=== PATIENT | female | born 1970 ===

== ENCOUNTER 2018-02-05 10:05 | Emergency (ER) | payer OTHER ==
[~2018-02-05] VITALS: Ht 162.6 cm; Wt 98.0 kg
== END 2018-02-05 14:34 | disposition home or self-care (01) ==
LOC: ER 10:05
DX: N39.0 Urinary tract infection, site not specified (principal)

== ENCOUNTER 2018-09-13 09:40 | Emergency (ER) | payer OTHER ==
[~2018-09-13] VITALS: Ht 162.6 cm; Wt 90.7 kg
[2018-09-13] MEDS ORDERED: RELAFEN (09:55)
[2018-09-13] MEDS ORDERED: NORFLEX (09:55)
== END 2018-09-13 11:06 | disposition home or self-care (01) ==
LOC: ER 09:40
DX: M54.5 Low back pain (principal)

== ENCOUNTER → 2018-12-02 | Emergency (ER) | payer OTHER ==
[~2018-12-02] VITALS: Ht 154.9 cm; Wt 102.1 kg
[~2018-12-02] MED LIST: NORFLEX; RELAFEN
== END | disposition home or self-care (01) ==
LOC: ER 09:45
DX: M79.18 Myalgia, other site (principal)